=== PATIENT | male | born 1935 | race Caucasian/White ===

== ENCOUNTER → 2018-07-19 14:00 | Outpatient (CLI) | payer BC, SELFPAY ==
[2018-07-19 15:04] LABS: BUN Creatinine Ratio 27.3 (6-22); Blood Urea Nitrogen 30 mg/dL (9-20); Calcium 9.5 mg/dL (8.4-10.2); Carbon Dioxide 30 mmol/L (22-32); Chloride 99 mmol/L (98-107); Estimated Glomerular Filt Rate > 60.0 mL/min (>60); Glucose 112 mg/dL (80-110); HEMOLYSIS < 15 (0-50); Potassium 5.1 mmol/L (3.4-5.1); Sodium 141 mmol/L (137-145)
[2018-07-19 20:26] LABS: Hemoglobin A1C% w Est Avg Glu 5.9 % (4.0-6.0)
== END ==
PROVIDERS: PCP Internal Medicine; Visit Provider Internal Medicine
DX: E11.9 Type 2 diabetes mellitus without complications (principal); I10 Essential (primary) hypertension
CPT/HCPCS: 36415; 80048; 83036

== ENCOUNTER → 2018-08-02 10:18 | Outpatient (CLI) | payer BC, SELFPAY ==
[2018-08-02 11:14] LABS: BUN Creatinine Ratio 22.5 (6-22); Blood Urea Nitrogen 27 mg/dL (9-20); Calcium 9.4 mg/dL (8.4-10.2); Carbon Dioxide 31 mmol/L (22-32); Chloride 102 mmol/L (98-107); Estimated Glomerular Filt Rate 57.8 mL/min (>60); Glucose 113 mg/dL (80-110); HEMOLYSIS < 15 (0-50); Potassium 4.2 mmol/L (3.4-5.1); Sodium 143 mmol/L (137-145)
== END ==
PROVIDERS: PCP Internal Medicine; Visit Provider Internal Medicine
DX: I50.9 Heart failure, unspecified (principal)
CPT/HCPCS: 36415; 80048

== ENCOUNTER → 2018-10-30 15:09 | Outpatient (CLI) | payer BC, SELFPAY ==
[2018-10-30 16:03] LABS: Add Manual Diff / Slide Review NO; Basophils Absolute Auto 100 /uL (0-100); Basophils Percent Auto 0.6 % (0-2); Eosinophils Absolute Auto 200 /uL (0-450); Hematocrit 46.9 % (41-53); Hemoglobin 15.7 g/dL (13.5-17.5); Lymphocytes Absolute Auto 1600 /uL (1100-4500); Lymphocytes Percent Auto 18.9 % (25-40); Mean Corpuscular HGB Conc 33.5 % (30-36); Mean Corpuscular Volume 92.5 fL (80-100); Monocytes Absolute Auto 700 /uL (0-900); Monocytes Percent Auto 8.4 % (3-14); Neutrophils Absolute Auto 5800 /uL (1500-7000); Neutrophils Percent Auto 70.1 % (50-75); Platelet Count 191 X10^3/uL (150-400); Red Blood Cell Count 5.07 X10^6/uL (4.5-5.9); Red Cell Distribution Width 13.5 % (11.6-14.8); White Blood Cell Count 8.3 X10^3/uL (4.5-11.0)
[2018-10-30 16:42] LABS: B Type Natriuretic Peptide 210 (<100)
[2018-10-30 17:18] LABS: Alanine Aminotransferase 36 IU/L (21-72); Albumin 4.1 g/dL (3.5-5.0); Albumin Globulin Ratio 1.5 (1.0-2.8); Alkaline Phosphatase 80 U/L (38-126); Aspartate Aminotransferase 27 IU/L (17-59); BUN Creatinine Ratio 23.8 (6-22); Bilirubin Total 0.5 mg/dL (0.2-1.3); Blood Urea Nitrogen 31 mg/dL (9-20); Calcium 9.7 mg/dL (8.4-10.2); Carbon Dioxide 27 mmol/L (22-32); Chloride 105 mmol/L (98-107); Estimated Glomerular Filt Rate 52.6 mL/min (>60); Globulin 2.8 g/dL (1.7-4.1); Glucose 104 mg/dL (80-110); HEMOLYSIS < 15 (0-50); Sodium 141 mmol/L (137-145); Total Protein 6.9 g/dL (6.3-8.2)
[2018-10-30 17:19] LABS: Potassium 5.7 mmol/L (3.4-5.1)
== END ==
PROVIDERS: Family Provider Internal Medicine; PCP Internal Medicine; Visit Provider Internal Medicine
DX: R06.09 Other forms of dyspnea (principal)
CPT/HCPCS: 36415; 80053; 83880; 85025

== ENCOUNTER → 2018-11-10 13:48 | Outpatient (CLI) | payer BC, SELFPAY ==
--- NOTE | 2018-11-10 | DI.ECHO.S_ITS ---
[facility] +---------+ : : [address] : : : : [id number] : : : : Phone: [phone]+ Echocardiogram Report + + :Name: NIK SY Study Date: 11/10/2018 Height: 70 in : :[facility] Weight: 225 lb : : Gender: Male BSA: 2.2 m2 : :: 1935 Age: 83 yrs BP: 120/74 mmHg: :Reason For Study: Dyspnea : :Ordering Physician: : :Garfield White Performed By: Hortencia Stinson : :Referring: MAIDA PLUNKETT : + + Interpretation Summary Left ventricular ejection fraction is estimated to be 35 +/- 5%. Septal motion is consistent with conduction abnormality. Septal, mid to distal postero-lateral wall, apex and the inferior wall are hypokinetic The right ventricular systolic pressure is estimated to be at least 23 mmHg based on an estimated right atrial pressure of 3 mm Hg. The ascending aorta is mildly enlarged. There is no significant valvular heart disease. Procedure: A two-dimensional transthoracic echocardiogram with color flow and Doppler was performed. The study quality was technically adequate. Comparison is made with the echocardiogram of 05-20-14. The patient had a bundle branch block rhythm during the exam. The heart rate ranged between 57- 64 bpm during the study. Left Ventricle: The left ventricle is normal in size. Left ventricular wall thickness is at the upper limits of normal. Left ventricular ejection fraction is estimated to be 35 +/- 5%. There has been no significant change since the previous exam. Septal, mid to distal postero-lateral wall, apex and the inferior wall are hypokinetic. Septal motion is consistent with conduction abnormality. Diastolic function could not be accurately assessed due to unobtainable data. Right Ventricle: The right ventricle grossly appears normal in size with probable normal systolic function. Atria: Borderline left atrial enlargement. Right atrial size is normal. The interatrial septum is intact with no evidence for an atrial septal defect. Mitral Valve: The mitral valve is grossly normal. There is mild mitral annular calcification. There is trace mitral regurgitation. Aortic Valve: The aortic valve opens well. No aortic regurgitation is present. Tricuspid Valve: The tricuspid valve is normal in structure and function. There is a trace or physiologic amount of tricuspid regurgitation. The right ventricular systolic pressure is estimated to be at least 23 mmHg based on an estimated right atrial pressure of 3 mm Hg. Pulmonic Valve: The pulmonic valve is not well visualized. There is trace pulmonic regurgitation. Great Vessels: The aortic root is normal size. The ascending aorta is mildly enlarged. This is unchanged compared to the previous study. The IVC is of normal diameter and collapses greater than 50% with a sniff. This suggests a low right atrial pressure of 3 mm Hg. Pericardium/ Pleura There is no pericardial effusion. There is no pleural effusion. MMode/2D Measurements & Calculations LVIDd: 5.6 cm Ao root diam: 3.7 cm LVIDs: 4.4 cm Aortic Jxn: 3.2 cm FS: 22.0 % asc Aorta Diam: 4.0 cm EPSS: 1.5 cm Ao Arch Diam (Prox Trans): 2.9 cm IVSd: 1.1 cm LVPWd: 1.1 cm LV chavira. diameter/BSA (cm/m^2): 2.6 LV sys. diameter/BSA (cm/m^2): 2.0 LA dimension: 4.2 cm RA long axis: 5.5 cm LA A2 area: 23.5 cm2 RA area: 13.9 cm2 LA A4 area: 19.9 cm2 RA vol: 30.2 ml LA length (vol): 5.4 cm RA : 13.8 ml/m2 LA vol: 74.0 ml IVC diam: 1.6 cm LA vol index: 33.7 ml/m2 RVDd major: 6.2 cm RVD1 (basal): 2.8 cm RVD2 (mid): 2.8 cm Doppler Measurements & Calculations Ao V2 max: 131.1 cm/sec MV E max georgi: 47.6 cm/sec Ao V2 mean: 81.6 cm/sec MV A max georgi: 101.0 cm/sec Ao max P.9 mmHg MV E/A: 0.47 Ao mean P.2 mmHg Med Peak E' Georgi: 3.1 cm/sec Ao V2 VTI: 27.2 cm E/E' med: 15.6 Lat Peak E' Georgi: 2.6 cm/sec E/E' lat: 18.1 E/e' average: 16.9 MV dec time: 0.33 sec MV P1/2t: 100.5 msec TR max georgi: 222.3 cm/sec MV P1/2t max georgi: 47.3 cm/sec TR max P.8 mmHg MVA(P1/2t): 2.2 cm2 PA V2 max: 81.6 cm/sec PA V2 mean: 54.1 cm/sec PA mean P.3 mmHg PA Accel Time: 0.14 sec Reading Physician:06:00 PM
== END ==
PROVIDERS: Family Provider Internal Medicine; PCP Internal Medicine; Visit Provider Internal Medicine
DX: R06.00 Dyspnea, unspecified (principal); I77.89 Other specified disorders of arteries and arterioles
CPT/HCPCS: 93306

== ENCOUNTER 2018-11-29 16:21 | Emergency (ER) | payer BC, SELFPAY ==
[2018-11-29 16:25] VITALS: BP 143/98; PULSE 83; RESP 18; TEMP 36.3; O2SAT 95; BMI 29.4
--- NOTE | 2018-11-29 17:13 | DI.RAD.S_ITS ---
PROCEDURE: XR CHEST 1V INDICATIONS: Dyspnea and cough TECHNIQUE: One view of the chest was acquired. COMPARISON: None. FINDINGS: Surgical changes and devices: None. Lungs and pleura: Lungs are mildly hyperinflated, but clear. No pleural effusions or pneumothorax. Mediastinum: Mediastinal contours appear normal. Heart size is normal. Bones and chest wall: No suspicious bony lesions. Overlying soft tissues appear unremarkable. IMPRESSION: Mild hyperinflation, but otherwise clear chest. Dictated by: Kristi Edmonds M.D. on 11/29/2018 at 17:30 Approved by: Kristi Edmonds M.D. on 11/29/2018 at 17:34
--- NOTE | 2018-11-29 17:22 | ED.SOB ---
HPI - SOB/Dyspnea <POWER Rascon - Last Filed: 11/29/18 22:25> General Chief Complaint: Shortness of Breath/Dyspnea Stated Complaint: SENT BY MD - POSSIBLE FLUID IN LUNGS Time Seen by Provider: 11/29/18 16:59 Source: patient Mode of arrival: ambulatory Limitations: no limitations History of Present Illness 83-year-old male with history of CHF is a former smoker here for complaint of having shortness of breath over the past couple of days. He does state that he has had a cough during the same timeframe. He reports that he has worsening shortness of breath with activity. He is in no acute distress he is able speak full sentences. Denies any chest pain. No known fevers or chills. He is tolerating p.o. intake. He denies being around sick contacts. He called to his inside solar sales consultant's office today who told come the emergency room for further evaluation. He denies any other concerns or complaints at this timeframe. Related Data Home Medications Medication Instructions Recorded Confirmed ALBUTEROL SULFATE (Ventolin / 1 - 2 puff INH BID #0 02/20/06 Proventil) ASPIRIN (Aspirin Ec) 81 mg PO #0 02/20/06 BECLOMETH INHALER 42MCG (VANCERIL) 4 puff INH BID #0 02/20/06 DIGOXIN (Lanoxin) 0.25 mg PO #0 02/20/06 FUROSEMIDE (Lasix) 20 mg PO Q DAY #0 02/20/06 LISINOPRIL (Zestril / Prinivil) 20 mg PO #0 02/20/06 Metoprolol Succinate (Toprol Xl) 150 mg PO Q DAY #0 02/20/06 Pyridoxine (Vitamin B-6) 0 PO * DOSE/FREQUENCY #0 02/20/06 Previous Rx's Medication Instructions Recorded oseltamivir 30 mg PO BID 5 Days #10 cap 11/29/18 Allergies Allergy/AdvReac Type Severity Reaction Status Date / Time statins Allergy Uncoded 11/29/18 16:25 Review of Systems <POWER Rascon - Last Filed: 11/29/18 22:25> Constitutional Denies chills, Denies fever(s), Denies lethargy and Denies weakness Eyes Denies change in vision, Denies eye discharge, Denies irritation and Denies loss of vision ENT Ears, Nose, Mouth, and Throat: Denies change in voice, Denies neck pain, Denies sore throat and Denies throat swelling Cardiovascular Denies chest pain, Denies irregular heart rhythm, Denies lightheadedness, Denies palpitations, Reports dyspnea and Denies orthopnea Respiratory Reports dyspnea and Denies wheezing Gastrointestinal Gastrointestinal: Denies abdominal pain, Denies change in bowel habits, Denies diarrhea, Denies nausea and Denies vomiting Genitourinary Denies hematuria, Denies flank pain, Denies urinary incontinence and Denies urinary urgency Musculoskeletal Denies neck pain Integumentary/Breasts Denies pruritus, Denies erythema, Denies rash and Denies wounds Neurologic Denies confusion, Denies loss of vision and Denies weakness Psychiatric Denies anxiety, Denies confusion, Denies depression, Denies homicidal ideation and Denies suicidal ideation Endocrine Denies palpitations Allergic/Immunologic Denies urticaria, Denies throat swelling and Denies wheezing PFSH <POWER Rascon - Last Filed: 11/29/18 22:25> Social History Smoking Status: Former smoker Social History Smoking Status: Former smoker Exam <POWER Rascon - Last Filed: 11/29/18 22:25> Initial Vital Signs Initial Vital Signs: Vital Signs Temperature 97.4 F L 11/29/18 16:25 Pulse Rate 83 11/29/18 16:25 Respiratory Rate 18 11/29/18 16:25 Blood Pressure 143/98 H 11/29/18 16:25 Pulse Oximetry 95 11/29/18 16:25 Const General: cooperative and well developed Nutritional Appearance: well nourished Orientation: alert, awake, oriented x3 and not confused [facility] Mouth: oral mucosae normal and moist mucous membranes Eyes General: appearance normal, both eyes and all related structures Conjunctivae: conjunctivae normal Sclera: sclerae normal Pupils: PERRL EOM: EOM intact bilaterally Resp Effort & Inspection: normal respiratory effort, able to speak in complete sentences, no respiratory distress and no use of accessory muscles Auscultation: clear to auscultation bilaterally, no rales, no rhonchi and no wheezes Cardio Rate: regular rate Rhythm: regular rhythm Heart Sounds: no click, no gallops, no murmurs and no rubs Pulses: normal peripheral pulses Skin General: no rashes or lesions noted, No jaundice and No petechiae Neuro General: alert, oriented x3, gait normal and no focal motor deficits Speech: speech normal <Blue Brock DO - Last Filed: 11/30/18 02:00> Initial Vital Signs Initial Vital Signs: Vital Signs Temperature 97.4 F L 11/29/18 16:25 Pulse Rate 83 11/29/18 16:25 Respiratory Rate 18 11/29/18 16:25 Blood Pressure 143/98 H 11/29/18 16:25 Pulse Oximetry 95 11/29/18 16:25 Course <POWER Rascon - Last Filed: 11/29/18 22:25> Orders Ordered: ED Orders 11/29/18 17:13 XR chest 1V Stat 11/29/18 17:30 B Type Natriuretic Peptide Stat Complete Blood Count AUTO DIFF Stat Comprehensive Metabolic Panel Stat Troponin & CK Cardiac Panel Stat 11/29/18 18:30 FLU A and B [Influenza A and B by PCR Rapid] Stat Discontinued Medications Oseltamivir Phosphate (Tamiflu) 30 mg PO NOW ONE Stop: 11/29/18 21:31 Last Admin: 11/29/18 21:51 Dose: Not Given Oseltamivir Phosphate (Tamiflu) 30 mg PO NOW ONE Stop: 11/29/18 21:38 Last Admin: 11/29/18 21:50 Dose: 30 mg Vital Signs - 8 hr 11/29/18 18:18 11/29/18 20:00 11/29/18 21:36 Pulse Rate 69 84 79 Respiratory Rate 18 19 17 Blood Pressure [Left Arm] 131/81 130/74 129/72 Pulse Oximetry 92 95 95 <Blue Brock DO - Last Filed: 11/30/18 02:00> Orders Ordered: ED Orders 11/29/18 17:13 XR chest 1V Stat 11/29/18 17:30 B Type Natriuretic Peptide Stat Complete Blood Count AUTO DIFF Stat Comprehensive Metabolic Panel Stat Troponin & CK Cardiac Panel Stat 11/29/18 18:30 FLU A and B [Influenza A and B by PCR Rapid] Stat Discontinued Medications Oseltamivir Phosphate (Tamiflu) 30 mg PO NOW ONE Stop: 11/29/18 21:31 Last Admin: 11/29/18 21:51 Dose: Not Given Oseltamivir Phosphate (Tamiflu) 30 mg PO NOW ONE Stop: 11/29/18 21:38 Last Admin: 11/29/18 21:50 Dose: 30 mg Vital Signs - 8 hr 11/29/18 18:18 11/29/18 20:00 11/29/18 21:36 Pulse Rate 69 84 79 Respiratory Rate 18 19 17 Blood Pressure [Left Arm] 131/81 130/74 129/72 Pulse Oximetry 92 95 95 MDM - SOB/Dyspnea <POWER Rascon - Last Filed: 11/29/18 22:25> Lab Data Result diagrams: 11/29/18 17:30 11/29/18 17:30 Lab Results 11/29/18 11/29/18 11/29/18 Range/Units 15:40 17:30 17:30 WBC 4.4 L (4.5-11.0) X10^3/uL RBC 4.78 (4.5-5.9) X10^6/uL Hgb 14.8 (13.5-17.5) g/dL Hct 43.9 (41-53) % MCV 91.9 (80-100) fL MCH 31.0 (26-34) PG MCHC 33.7 (30-36) % RDW 13.4 (11.6-14.8) % Plt Count 137 L (150-400) X10^3/uL Neut % (Auto) 63.1 (50-75) % Lymph % (Auto) 20.2 L (25-40) % Monona % (Auto) 15.0 H (3-14) % Eos % (Auto) 0.7 L (2-4) % Baso % (Auto) 1.0 (0-2) % Neut # (Auto) 2800 (2974-3467) /uL Lymph # (Auto) 900 L (5536-8824) /uL Monona # (Auto) 700 (0-900) /uL Eos # (Auto) 0 (0-450) /uL Baso # (Auto) 0 (0-100) /uL Sodium 132 L (137-145) mmol/L Potassium 3.4 (3.4-5.1) mmol/L Chloride 94 L (98-107) mmol/L Carbon Dioxide 27 (22-32) mmol/L BUN 55 H (9-20) mg/dL Creatinine 1.50 H (0.66-1.25) mg/dL Estimated GFR 44.6 L (>60) mL/min BUN/Creatinine Ratio 36.7 H (6-22) Glucose 216 H (80-110) mg/dL Calcium 8.4 (8.4-10.2) mg/dL Total Bilirubin 0.6 (0.2-1.3) mg/dL AST 54 (17-59) IU/L ALT 42 (21-72) IU/L Alkaline Phosphatase 56 (38-126) U/L Total Creatine Kinase 291 H (55-170) U/L CK-MB (CK-2) 3.42 H (<2.37) ng/mL CK-MB (CK-2) Rel Index 1.2 L (1.5-5.0) % Troponin I 0.059 H 0.043 H (0.01-0.034) ng/mL B-Natriuretic Peptide 375 H (<100) Total Protein 6.7 (6.3-8.2) g/dL Albumin 3.6 (3.5-5.0) g/dL Globulin 3.1 (1.7-4.1) g/dL Albumin/Globulin Ratio 1.2 (1.0-2.8) Influenza A & B (PCR) (Negative) 11/29/18 Range/Units 18:30 WBC (4.5-11.0) X10^3/uL RBC (4.5-5.9) X10^6/uL Hgb (13.5-17.5) g/dL Hct (41-53) % MCV (80-100) fL MCH (26-34) PG MCHC (30-36) % RDW (11.6-14.8) % Plt Count (150-400) X10^3/uL Neut % (Auto) (50-75) % Lymph % (Auto) (25-40) % Monona % (Auto) (3-14) % Eos % (Auto) (2-4) % Baso % (Auto) (0-2) % Neut # (Auto) (8119-1226) /uL Lymph # (Auto) (9864-9339) /uL Monona # (Auto) (0-900) /uL Eos # (Auto) (0-450) /uL Baso # (Auto) (0-100) /uL Sodium (137-145) mmol/L Potassium (3.4-5.1) mmol/L Chloride (98-107) mmol/L Carbon Dioxide (22-32) mmol/L BUN (9-20) mg/dL Creatinine (0.66-1.25) mg/dL Estimated GFR (>60) mL/min BUN/Creatinine Ratio (6-22) Glucose (80-110) mg/dL Calcium (8.4-10.2) mg/dL Total Bilirubin (0.2-1.3) mg/dL AST (17-59) IU/L ALT (21-72) IU/L Alkaline Phosphatase (38-126) U/L Total Creatine Kinase (55-170) U/L CK-MB (CK-2) (<2.37) ng/mL CK-MB (CK-2) Rel Index (1.5-5.0) % Troponin I (0.01-0.034) ng/mL B-Natriuretic Peptide (<100) Total Protein (6.3-8.2) g/dL Albumin (3.5-5.0) g/dL Globulin (1.7-4.1) g/dL Albumin/Globulin Ratio (1.0-2.8) Influenza A & B (PCR) Positive, type a A (Negative) Imaging Data Chest x-ray: Radiologist's impression: [place] [address] XRay Report Signed Patient: Morteza Marquez [facility]#: [id number] : 5Acct:[id number] Age/Sex: 83 / MDate of Service: 11/29/18 Loc: ED Accession Number: [id number] Procedure: XR chest 1V Ordering Provider: Abdirashid York PROCEDURE: XR CHEST 1V INDICATIONS: Dyspnea and cough TECHNIQUE: One view of the chest was acquired. COMPARISON: None. FINDINGS: Surgical changes and devices: None. Lungs and pleura: Lungs are mildly hyperinflated, but clear. No pleural effusions or pneumothorax. Mediastinum: Mediastinal contours appear normal. Heart size is normal. Bones and chest wall: No suspicious bony lesions. Overlying soft tissues appear unremarkable. IMPRESSION: Mild hyperinflation, but otherwise clear chest. Dictated by: Kristi Edmonds M.D. on 11/29/2018 at 17:30 Approved by: Kristi Edmonds M.D. on 11/29/2018 at 17:34 ECG Data Interpretation: EKG shows sinus rhythm no ST elevation or depression. There is a left bundle branch block. Ventricular rate of 76. Pr interval of 190. QRS of 177. QTC of 487 MDM Narrative Medical decision making narrative: EKG shows sinus rhythm no ST elevation or depression. No ectopy. Chest x-ray was obtained and was negative for any acute findings.CBC was obtained and was unremarkable. Chemistry panel was obtained and it shows troponin is intermediate at 0.043. Repeat troponin was obtained 2 hr later and was 0.059. BNP was elevated at 375. Chemistry also shows a decreased GFR of 44.6 tonight. Last GFR was in October which was 52.6. His creatinine is 1.5 tonight. discussed case with his inside solar sales consultant Dr. Porras who does not believe that he is having any cardiac ischmia. We both believe that his shortness of breath is due to influenza at this timeframe. He is prescribed Tamiflu. He is instructed to take his current medications including his diuretics as prescribed. Plenty of fluids. Follow up with primary care provider the next few days for re-evaluation. For any worsening symptoms return to the emergency room. <Blue Brock DO - Last Filed: 11/30/18 02:00> Lab Data Lab Results 11/29/18 11/29/18 11/29/18 Range/Units 15:40 17:30 17:30 WBC 4.4 L (4.5-11.0) X10^3/uL RBC 4.78 (4.5-5.9) X10^6/uL Hgb 14.8 (13.5-17.5) g/dL Hct 43.9 (41-53) % MCV 91.9 (80-100) fL MCH 31.0 (26-34) PG MCHC 33.7 (30-36) % RDW 13.4 (11.6-14.8) % Plt Count 137 L (150-400) X10^3/uL Neut % (Auto) 63.1 (50-75) % Lymph % (Auto) 20.2 L (25-40) % Monona % (Auto) 15.0 H (3-14) % Eos % (Auto) 0.7 L (2-4) % Baso % (Auto) 1.0 (0-2) % Neut # (Auto) 2800 (6767-6305) /uL Lymph # (Auto) 900 L (9990-3938) /uL Monona # (Auto) 700 (0-900) /uL Eos # (Auto) 0 (0-450) /uL Baso # (Auto) 0 (0-100) /uL Sodium 132 L (137-145) mmol/L Potassium 3.4 (3.4-5.1) mmol/L Chloride 94 L (98-107) mmol/L Carbon Dioxide 27 (22-32) mmol/L BUN 55 H (9-20) mg/dL Creatinine 1.50 H (0.66-1.25) mg/dL Estimated GFR 44.6 L (>60) mL/min BUN/Creatinine Ratio 36.7 H (6-22) Glucose 216 H (80-110) mg/dL Calcium 8.4 (8.4-10.2) mg/dL Total Bilirubin 0.6 (0.2-1.3) mg/dL AST 54 (17-59) IU/L ALT 42 (21-72) IU/L Alkaline Phosphatase 56 (38-126) U/L Total Creatine Kinase 291 H (55-170) U/L CK-MB (CK-2) 3.42 H (<2.37) ng/mL CK-MB (CK-2) Rel Index 1.2 L (1.5-5.0) % Troponin I 0.059 H 0.043 H (0.01-0.034) ng/mL B-Natriuretic Peptide 375 H (<100) Total Protein 6.7 (6.3-8.2) g/dL Albumin 3.6 (3.5-5.0) g/dL Globulin 3.1 (1.7-4.1) g/dL Albumin/Globulin Ratio 1.2 (1.0-2.8) Influenza A & B (PCR) (Negative) 11/29/18 Range/Units 18:30 WBC (4.5-11.0) X10^3/uL RBC (4.5-5.9) X10^6/uL Hgb (13.5-17.5) g/dL Hct (41-53) % MCV (80-100) fL MCH (26-34) PG MCHC (30-36) % RDW (11.6-14.8) % Plt Count (150-400) X10^3/uL Neut % (Auto) (50-75) % Lymph % (Auto) (25-40) % Monona % (Auto) (3-14) % Eos % (Auto) (2-4) % Baso % (Auto) (0-2) % Neut # (Auto) (1005-1740) /uL Lymph # (Auto) (7264-7074) /uL Monona # (Auto) (0-900) /uL Eos # (Auto) (0-450) /uL Baso # (Auto) (0-100) /uL Sodium (137-145) mmol/L Potassium (3.4-5.1) mmol/L Chloride (98-107) mmol/L Carbon Dioxide (22-32) mmol/L BUN (9-20) mg/dL Creatinine (0.66-1.25) mg/dL Estimated GFR (>60) mL/min BUN/Creatinine Ratio (6-22) Glucose (80-110) mg/dL Calcium (8.4-10.2) mg/dL Total Bilirubin (0.2-1.3) mg/dL AST (17-59) IU/L ALT (21-72) IU/L Alkaline Phosphatase (38-126) U/L Total Creatine Kinase (55-170) U/L CK-MB (CK-2) (<2.37) ng/mL CK-MB (CK-2) Rel Index (1.5-5.0) % Troponin I (0.01-0.034) ng/mL B-Natriuretic Peptide (<100) Total Protein (6.3-8.2) g/dL Albumin (3.5-5.0) g/dL Globulin (1.7-4.1) g/dL Albumin/Globulin Ratio (1.0-2.8) Influenza A & B (PCR) Positive, type a A (Negative) Discharge Plan Departure Patient Disposition: Home Clinical Impression: Influenza A Discharge Date/Time: 03/27/19 21:57 Interventions: ED Discharge Assessment Last Done: 11/29/18 21:57 Activity Restrictions/Additional Instructions: Influenza swab was obtained and positive for influenza A. Believe this is where your shortness of breath is coming from. Plenty of fluids and rest. Tamiflu is prescribed to help with influenza symptoms use as directed. Use [id number] Tylenol as needed for any discomfort. Follow up with her primary care provider in the next few days for re-evaluation. For any worsening symptoms return to the emergency room. Prescriptions: New oseltamivir 30 mg capsule 30 mg PO BID 5 Days Qty: 10 RF: 0 No Action LISINOPRIL (Zestril / Prinivil) 20 mg PO Qty: 0 RF: 0 Metoprolol Succinate (Toprol Xl) 150 mg PO Q DAY Qty: 0 RF: 0 DIGOXIN (Lanoxin) 0.25 mg PO Qty: 0 RF: 0 FUROSEMIDE (Lasix) 20 mg PO Q DAY Qty: 0 RF: 0 ASPIRIN (Aspirin Ec) 81 mg PO Qty: 0 RF: 0 Pyridoxine (Vitamin B-6) PO * [place] DOSE/FREQUENCY Qty: 0 RF: 0 ALBUTEROL SULFATE (Ventolin / Proventil) 1 - 2 puff INH BID Qty: 0 RF: 0 BECLOMETH INHALER 42MCG (VANCERIL) 4 puff INH BID Qty: 0 RF: 0 Referrals: Garfield White MD [Primary Care Provider] - <Blue Brock DO - Last Filed: 11/30/18 02:00> Cosign ED Attending Bobbiature Attestation: I was available for consultation during this patient's emergency department encounter
[2018-11-29 17:39] LABS: Add Manual Diff / Slide Review NO; Basophils Absolute Auto 0 /uL (0-100); Eosinophils Absolute Auto 0 /uL (0-450); Eosinophils Percent Auto 0.7 % (2-4); Hematocrit 43.9 % (41-53); Hemoglobin 14.8 g/dL (13.5-17.5); Lymphocytes Absolute Auto 900 /uL (1100-4500); Lymphocytes Percent Auto 20.2 % (25-40); Mean Corpuscular HGB Conc 33.7 % (30-36); Mean Corpuscular Volume 91.9 fL (80-100); Monocytes Absolute Auto 700 /uL (0-900); Neutrophils Absolute Auto 2800 /uL (1500-7000); Neutrophils Percent Auto 63.1 % (50-75); Platelet Count 137 X10^3/uL (150-400); Red Blood Cell Count 4.78 X10^6/uL (4.5-5.9); Red Cell Distribution Width 13.4 % (11.6-14.8); White Blood Cell Count 4.4 X10^3/uL (4.5-11.0)
[2018-11-29 17:57] LABS: Alanine Aminotransferase 42 IU/L (21-72); Albumin 3.6 g/dL (3.5-5.0); Albumin Globulin Ratio 1.2 (1.0-2.8); Alkaline Phosphatase 56 U/L (38-126); Aspartate Aminotransferase 54 IU/L (17-59); BUN Creatinine Ratio 36.7 (6-22); Bilirubin Total 0.6 mg/dL (0.2-1.3); Blood Urea Nitrogen 55 mg/dL (9-20); Calcium 8.4 mg/dL (8.4-10.2); Carbon Dioxide 27 mmol/L (22-32); Chloride 94 mmol/L (98-107); Creatine Kinase 291 U/L (55-170); Estimated Glomerular Filt Rate 44.6 mL/min (>60); Globulin 3.1 g/dL (1.7-4.1); Glucose 216 mg/dL (80-110); HEMOLYSIS 27 (0-50); Potassium 3.4 mmol/L (3.4-5.1); Sodium 132 mmol/L (137-145); Total Protein 6.7 g/dL (6.3-8.2)
[2018-11-29 18:07] LABS: Troponin I 0.043 ng/mL (0.01-0.034)
[2018-11-29 18:12] LABS: CKMB % Relative Index 1.2 % (1.5-5.0); Creatine Kinase MB 3.42 ng/mL (<2.37)
[2018-11-29 18:18] VITALS: BP 131/81; PULSE 69; RESP 18; O2SAT 92
[2018-11-29 18:26] LABS: B Type Natriuretic Peptide 375 (<100)
[2018-11-29 20:00] VITALS: BP 130/74; PULSE 84; RESP 19; O2SAT 95
[2018-11-29 20:15] LABS: Troponin I 0.059 ng/mL (0.01-0.034)
[2018-11-29 21:36] VITALS: BP 129/72; PULSE 79; RESP 17; O2SAT 95
[2018-11-29] MEDS: OSELTAMIVIR SUSP 6 MG/ML BOTTLE 30 MG PO (21:50)
== END 2018-11-29 21:57 | disposition home or self-care (01) ==
PROVIDERS: Emergency Provider Nurse Practitioner Family; Family Provider Internal Medicine; PCP Internal Medicine
DX: J10.1 Influenza due to other identified influenza virus with other respiratory manifestations (principal)
CPT/HCPCS: 36415; 36591; 71045; 80053; 82550; 82553; 83880; 84484; 85025; 87400; 93005; 99284; 99285

== ENCOUNTER → 2019-01-03 13:30 | Outpatient (CLI) | payer BC, SELFPAY ==
[2019-01-03 15:00] LABS: BUN Creatinine Ratio 23.3 (6-22); Blood Urea Nitrogen 42 mg/dL (9-20); Calcium 9.3 mg/dL (8.4-10.2); Carbon Dioxide 30 mmol/L (22-32); Chloride 95 mmol/L (98-107); Estimated Glomerular Filt Rate 36.1 mL/min (>60); Glucose 194 mg/dL (80-110); HEMOLYSIS < 15 (0-50); Potassium 4.6 mmol/L (3.4-5.1); Sodium 137 mmol/L (137-145)
== END ==
PROVIDERS: PCP Internal Medicine; Visit Provider Physician Assistant
DX: I25.5 Ischemic cardiomyopathy (principal); I42.0 Dilated cardiomyopathy
CPT/HCPCS: 36415; 80048

== ENCOUNTER → 2019-01-15 08:27 | Outpatient (CLI) | payer BC, SELFPAY ==
[2019-01-15 10:05] LABS: BUN Creatinine Ratio 27.7 (6-22); Blood Urea Nitrogen 36 mg/dL (9-20); Calcium 9.4 mg/dL (8.4-10.2); Carbon Dioxide 29 mmol/L (22-32); Chloride 99 mmol/L (98-107); Estimated Glomerular Filt Rate 52.6 mL/min (>60); Glucose 127 mg/dL (80-110); Sodium 139 mmol/L (137-145)
[2019-01-15 10:16] LABS: HEMOLYSIS 62 (0-50)
== END ==
PROVIDERS: PCP Internal Medicine; Visit Provider Physician Assistant
DX: I42.8 Other cardiomyopathies (principal); N28.9 Disorder of kidney and ureter, unspecified
CPT/HCPCS: 36415; 80048

== ENCOUNTER → 2019-02-08 15:37 | Outpatient (CLI) | payer BC, SELFPAY ==
[2019-02-08 17:18] LABS: BUN Creatinine Ratio 24.3 (6-22); Blood Urea Nitrogen 34 mg/dL (9-20); Calcium 9.7 mg/dL (8.4-10.2); Carbon Dioxide 30 mmol/L (22-32); Chloride 102 mmol/L (98-107); Estimated Glomerular Filt Rate 48.3 mL/min (>60); Glucose 110 mg/dL (80-110); HEMOLYSIS < 15 (0-50); Sodium 141 mmol/L (137-145)
== END ==
PROVIDERS: PCP Internal Medicine; Visit Provider Physician Assistant
DX: I50.22 Chronic systolic (congestive) heart failure (principal); N28.9 Disorder of kidney and ureter, unspecified
CPT/HCPCS: 36415; 80048

== ENCOUNTER → 2019-03-01 14:19 | Outpatient (CLI) | payer BC, SELFPAY ==
[2019-03-01 15:27] LABS: BUN Creatinine Ratio 30.6 (6-22); Blood Urea Nitrogen 52 mg/dL (9-20); Calcium 9.6 mg/dL (8.4-10.2); Carbon Dioxide 32 mmol/L (22-32); Chloride 101 mmol/L (98-107); Estimated Glomerular Filt Rate 38.6 mL/min (>60); Glucose 104 mg/dL (80-110); HEMOLYSIS < 15 (0-50); Potassium 5.3 mmol/L (3.4-5.1); Sodium 141 mmol/L (137-145)
== END ==
PROVIDERS: PCP Internal Medicine; Visit Provider Physician Assistant
DX: I50.22 Chronic systolic (congestive) heart failure (principal); N28.9 Disorder of kidney and ureter, unspecified
CPT/HCPCS: 36415; 80048

== ENCOUNTER → 2019-03-09 13:51 | Outpatient (CLI) | payer BC, SELFPAY ==
[2019-03-09 15:03] LABS: Alanine Aminotransferase 19 IU/L (21-72); Albumin 4.1 g/dL (3.5-5.0); Albumin Globulin Ratio 1.5 (1.0-2.8); Alkaline Phosphatase 87 U/L (38-126); Aspartate Aminotransferase 24 IU/L (17-59); BUN Creatinine Ratio 24.7 (6-22); Bilirubin Total 0.5 mg/dL (0.2-1.3); Blood Urea Nitrogen 42 mg/dL (9-20); Calcium 9.5 mg/dL (8.4-10.2); Carbon Dioxide 32 mmol/L (22-32); Chloride 98 mmol/L (98-107); Estimated Glomerular Filt Rate 38.6 mL/min (>60); Globulin 2.8 g/dL (1.7-4.1); Glucose 157 mg/dL (80-110); HEMOLYSIS < 15 (0-50); Potassium 4.9 mmol/L (3.4-5.1); Sodium 140 mmol/L (137-145); Total Protein 6.9 g/dL (6.3-8.2)
[2019-03-09 15:28] LABS: Thyroid Stimulating Hormone 1.73 uIU/mL (0.47-4.68)
== END ==
PROVIDERS: PCP Internal Medicine; Visit Provider Internal Medicine Cardiovascular Disease
DX: I48.0 Paroxysmal atrial fibrillation (principal)
CPT/HCPCS: 36415; 80053; 84443

== ENCOUNTER → 2019-03-20 14:41 | Outpatient (CLI) | payer BC, SELFPAY ==
[2019-03-20 16:37] LABS: Blood Urea Nitrogen 40 mg/dL (9-20); Calcium 9.5 mg/dL (8.4-10.2); Carbon Dioxide 31 mmol/L (22-32); Chloride 101 mmol/L (98-107); Estimated Glomerular Filt Rate 41.4 mL/min (>60); Glucose 113 mg/dL (80-110); HEMOLYSIS 66 (0-50); Sodium 140 mmol/L (137-145)
[2019-03-20 16:38] LABS: Potassium 5.2 mmol/L (3.4-5.1)
== END ==
PROVIDERS: PCP Internal Medicine; Visit Provider Physician Assistant
DX: N28.9 Disorder of kidney and ureter, unspecified (principal)
CPT/HCPCS: 36415; 80048

== ENCOUNTER → 2019-03-23 10:37 | Outpatient (CLI) | payer BC, SELFPAY ==
[2019-03-23 17:17] LABS: Blood Urea Nitrogen 40 mg/dL (9-20); Calcium 9.8 mg/dL (8.4-10.2); Carbon Dioxide 32 mmol/L (22-32); Chloride 100 mmol/L (98-107); Estimated Glomerular Filt Rate 41.4 mL/min (>60); Glucose 74 mg/dL (80-110); HEMOLYSIS < 15 (0-50); Potassium 5.2 mmol/L (3.4-5.1); Sodium 139 mmol/L (137-145)
== END ==
PROVIDERS: Visit Provider Physician Assistant
DX: N28.9 Disorder of kidney and ureter, unspecified (principal)
CPT/HCPCS: 36415; 80048

== ENCOUNTER → 2019-03-29 15:35 | Outpatient (CLI) | payer BC, SELFPAY ==
[2019-03-29 16:56] LABS: BUN Creatinine Ratio 26.1 (6-22); Blood Urea Nitrogen 47 mg/dL (9-20); Calcium 9.8 mg/dL (8.4-10.2); Carbon Dioxide 31 mmol/L (22-32); Chloride 97 mmol/L (98-107); Estimated Glomerular Filt Rate 36.1 mL/min (>60); Glucose 88 mg/dL (80-110); HEMOLYSIS < 15 (0-50); Potassium 5.1 mmol/L (3.4-5.1); Sodium 140 mmol/L (137-145)
== END ==
PROVIDERS: PCP Internal Medicine; Visit Provider Physician Assistant
DX: N28.9 Disorder of kidney and ureter, unspecified (principal); I50.22 Chronic systolic (congestive) heart failure
CPT/HCPCS: 36415; 80048

== ENCOUNTER → 2019-04-05 08:50 | Outpatient (CLI) | payer BC, SELFPAY ==
[2019-04-05 09:33] LABS: BUN Creatinine Ratio 19.4 (6-22); Blood Urea Nitrogen 33 mg/dL (9-20); Calcium 9.7 mg/dL (8.4-10.2); Carbon Dioxide 30 mmol/L (22-32); Chloride 106 mmol/L (98-107); Estimated Glomerular Filt Rate 38.6 mL/min (>60); Glucose 101 mg/dL (80-110); HEMOLYSIS < 15 (0-50); Sodium 143 mmol/L (137-145)
[2019-04-05 09:34] LABS: Potassium 5.4 mmol/L (3.4-5.1)
== END ==
PROVIDERS: PCP Internal Medicine; Visit Provider Physician Assistant
DX: N28.9 Disorder of kidney and ureter, unspecified (principal)
CPT/HCPCS: 36415; 80048

== ENCOUNTER → 2019-04-11 11:01 | Outpatient (CLI) | payer BC, SELFPAY ==
[2019-04-11 12:06] LABS: BUN Creatinine Ratio 21.7 (6-22); Blood Urea Nitrogen 39 mg/dL (9-20); Calcium 9.5 mg/dL (8.4-10.2); Carbon Dioxide 33 mmol/L (22-32); Chloride 102 mmol/L (98-107); Estimated Glomerular Filt Rate 36.1 mL/min (>60); Glucose 111 mg/dL (80-110); HEMOLYSIS < 15 (0-50); Sodium 140 mmol/L (137-145)
== END ==
PROVIDERS: PCP Internal Medicine; Visit Provider Hospitalist
DX: N28.9 Disorder of kidney and ureter, unspecified (principal); E87.5 Hyperkalemia
CPT/HCPCS: 36415; 80048

== ENCOUNTER → 2019-07-03 14:36 | Outpatient (CLI) | payer BC, SELFPAY ==
[2019-07-03 17:34] LABS: BUN Creatinine Ratio 26.3 (6-22); Blood Urea Nitrogen 42 mg/dL (9-20); Calcium 9.9 mg/dL (8.4-10.2); Carbon Dioxide 29 mmol/L (22-32); Chloride 100 mmol/L (98-107); Estimated Glomerular Filt Rate 41.4 mL/min (>60); Glucose 129 mg/dL (80-110); HEMOLYSIS < 15 (0-50); Potassium 4.4 mmol/L (3.4-5.1); Sodium 141 mmol/L (137-145)
== END ==
PROVIDERS: Visit Provider Hospitalist
DX: I42.8 Other cardiomyopathies (principal)
CPT/HCPCS: 36415; 80048

== ENCOUNTER → 2019-07-30 10:06 | Outpatient (CLI) | payer BC, SELFPAY ==
[2019-07-30 10:58] LABS: BUN Creatinine Ratio 21.8 (6-22); Blood Urea Nitrogen 37 mg/dL (9-20); Calcium 9.6 mg/dL (8.4-10.2); Carbon Dioxide 34 mmol/L (22-32); Chloride 98 mmol/L (98-107); Estimated Glomerular Filt Rate 38.6 mL/min (>60); Glucose 169 mg/dL (80-110); HEMOLYSIS < 15 (0-50); Potassium 4.3 mmol/L (3.4-5.1); Sodium 142 mmol/L (137-145)
== END ==
PROVIDERS: Family Provider Family Medicine; PCP Family Medicine; Visit Provider Hospitalist
DX: N28.9 Disorder of kidney and ureter, unspecified (principal); E87.5 Hyperkalemia
CPT/HCPCS: 36415; 80048

== ENCOUNTER 2020-04-28 08:52 | Emergency (ER) | payer BC, SELFPAY ==
[2020-04-28 09:18] VITALS: BP 107/62; PULSE 67; RESP 18; TEMP 36.7; O2SAT 97; BMI 28.8
[2020-04-28 09:26] VITALS: PULSE 70
[2020-04-28 09:47] VITALS: PULSE 69; O2SAT 95
--- NOTE | 2020-04-28 09:47 | ED_ITS ---
HPI - Extremity Problem General Chief complaint: Extremity Problem,Nontraumatic Stated complaint: something wrong w left foot toe Time Seen by Provider: 04/28/20 09:47 Source: patient Mode of arrival: Wheelchair Limitations: no limitations History of Present Illness HPI Narrative: 84-year-old gentleman with history of heart failure on digoxin, COPD, congestive heart failure and pacemaker who over the last 2 days has been having increasing right foot pain over the 1st metatarsal. He notes he was outside working in the [employer] and felt an acute pain without any obvious trauma. Has been intermittently worse for the past 48 hours. He has no history of prior gout Related Data Home Medications Medication Instructions Recorded Confirmed ALBUTEROL SULFATE (Ventolin / 1 - 2 puff INH BID #0 02/20/06 Proventil) ASPIRIN (Aspirin Ec) 81 mg PO #0 02/20/06 BECLOMETH INHALER 42MCG (VANCERIL) 4 puff INH BID #0 02/20/06 DIGOXIN (Lanoxin) 0.25 mg PO #0 02/20/06 FUROSEMIDE (Lasix) 20 mg PO Q DAY #0 02/20/06 LISINOPRIL (Zestril / Prinivil) 20 mg PO #0 02/20/06 Metoprolol Succinate (Toprol Xl) 150 mg PO Q DAY #0 02/20/06 Pyridoxine (Vitamin B-6) 0 PO * DOSE/FREQUENCY #0 02/20/06 Previous Rx's Medication Instructions Recorded prednisone 10 mg PO DAILY #21 tab 04/28/20 Allergies Allergy/AdvReac Type Severity Reaction Status Date / Time statins Allergy Uncoded 11/29/18 16:25 Review of Systems Review of Systems Narrative: Pertinent positive and negative findings as per HPI Remainder of review of systems is otherwise unremarkable for Constitutional: Fevers, chills, weakness ENT: No sore throat, neck pain, ear pain CV: Chest pain, palpitations, dyspnea on exertion GI: Nausea, vomiting, diarrhea, change in bowel habits, black or bloody stools : Dysuria, hematuria, flank pain MS: Muscle weakness, numbness, joint swelling or warmth Skin: Rashes, nonhealing lesions Patient History Medical History Congestive heart failure (Acute) COPD (chronic obstructive pulmonary disease) (Acute) Renal insufficiency (Acute) Surgical History History of permanent cardiac pacemaker placement (Inactive) Social History Smoking Status: Former smoker Smoking Status: Former smoker alcohol intake frequency: holidays/special occasions only Substance Use Type: does not use Exam Narrative Exam Narrative: General: Alert appropriate in no acute distress Respiratory: Able to speak in full sentences, no obvious respiratory distress Skin: No obvious rashes, warm and dry Neurologic: Grossly intact no obvious asymmetries or abnormalities Psych, appropriate insight and affect, cooperative Extremity: Right 1st metatarsal joint exquisitely tender, red with mild swelling over the dorsum of the foot but not particularly warm to the touch no evidence of trauma deformity or skin breakdown. Significant onychomycosis Initial Vital Signs Initial Vital Signs: Vital Signs Temperature 98.1 F 04/28/20 09:18 Pulse Rate 67 04/28/20 09:18 Respiratory Rate 18 04/28/20 09:18 Blood Pressure 107/62 04/28/20 09:18 Pulse Oximetry 97 04/28/20 09:18 Course Orders Ordered: ED Orders 04/28/20 10:29 Complete Blood Count AUTO DIFF Stat Comprehensive Metabolic Panel Stat Uric Acid Stat Discontinued Medications Prednisone (Deltasone) 40 mg PO NOW ONE Stop: 04/28/20 10:20 Last Admin: 04/28/20 10:53 Dose: Not Given Documented by: EVARISTO Prednisone (Deltasone) 40 mg PO NOW ONE Stop: 04/28/20 10:52 Last Admin: 04/28/20 10:52 Dose: 40 mg Documented by: EVARISTO Vital Signs Vital signs: Vital Signs - 8 hr 04/28/20 11:21 Pulse Rate 68 Blood Pressure 114/68 Pulse Oximetry 96 MDM - Extremity (Nontraumatic) Medical Records Attestation: I reviewed the patient's medical records. Lab Data Attestation: I reviewed the patient's lab results. Result diagrams: 04/28/20 10:29 04/28/20 10:29 Labs: Lab Results 04/28/20 04/28/20 Range/Units 10:29 10:29 WBC 8.7 (4.5-11.0) X10^3/uL RBC 4.53 (4.5-5.9) X10^6/uL Hgb 14.3 (13.5-17.5) g/dL Hct 42.2 (41-53) % MCV 93.2 (80-100) fL MCH 31.7 (26-34) PG MCHC 34.0 (30-36) % RDW 13.0 (11.6-14.8) % Plt Count 178 (150-400) X10^3/uL Neut % (Auto) 75.6 H (50-75) % Lymph % (Auto) 13.2 L (25-40) % [place] % (Auto) 9.2 (3-14) % Eos % (Auto) 1.5 L (2-4) % Baso % (Auto) 0.5 (0-2) % Neut # (Auto) 6600 (0525-5117) /uL Lymph # (Auto) 1100 (5427-1635) /uL [place] # (Auto) 800 (0-900) /uL Eos # (Auto) 100 (0-450) /uL Baso # (Auto) 0 (0-100) /uL Sodium 136 L (137-145) mmol/L Potassium 4.4 (3.4-5.1) mmol/L Chloride 102 (98-107) mmol/L Carbon Dioxide 29 (22-32) mmol/L BUN 31 H (9-20) mg/dL Creatinine 1.37 H (0.66-1.25) mg/dL Estimated GFR 49.4 L (>60) mL/min BUN/Creatinine Ratio 22.6 H (6-22) Glucose 145 H (80-110) mg/dL Uric Acid 8.1 (3.5-8.5) mg/dL Calcium 9.1 (8.4-10.2) mg/dL Total Bilirubin 0.9 (0.2-1.3) mg/dL AST 22 (17-59) IU/L ALT 14 (<50) IU/L Alkaline Phosphatase 107 (38-126) U/L Total Protein 7.2 (6.3-8.2) g/dL Albumin 4.0 (3.5-5.0) g/dL Globulin 3.2 (1.7-4.1) g/dL Albumin/Globulin Ratio 1.3 (1.0-2.8) MDM Narrative Medical decision making narrative: 84-year-old gentleman with 48 hours of increasing redness and exquisite pain to the right 1st metatarsal joint. Elevated uric acid although still within the normal range. Mild renal insufficiency. Slightly better after 40 mg of prednisone. No evidence of infection at this time no evidence of trauma. Working diagnosis at this point is a gout flare. Because of his renal insufficiency nonsteroidals and co lchicine are not indicated. Will place him on prednisone taper over the next 7 days and is to follow-up with his primary care physician at the end of the 7 days to make sure that he is clearly improving safe for home discharge Discharge Plan Departure Patient Disposition: Home Clinical Impression: Renal insufficiency Gout Qualifiers: Gout site: foot Gout etiology: unspecified cause Chronicity: acute Laterality: left Qualified Code(s): M10.9 - Gout, unspecified Discharge Date/Time: 04/28/20 11:40 Instructions: DI for Gout Activity Restrictions/Additional Instructions: Thank you for coming in today I suspect that the pain that you are experiencing in your foot is due to gout. Your kidney function will not allow was to use the first-line treatment for gout so I am going to put you on a steroid taper the next couple of days to help control the pain. At this time, it does not look like an infection or an obvious trauma or somethi ng broken. Please take 40 mg 04/29,26 30 mg 05/01,28 20 mg 05/03,30 10mg 05/05,05/06 and 5mg 05/07,3 then stop Please follow-up with Dr. Harp in about a week to make sure that you are clearly improving. I hope you feel better Prescriptions: New prednisone 10 mg tablet 10 mg PO DAILY Qty: 21 RF: 0 No Action LISINOPRIL (Zestril / Prinivil) 20 mg PO Qty: 0 RF: 0 Metoprolol Succinate (Toprol Xl) 150 mg PO Q DAY Qty: 0 RF: 0 DIGOXIN (Lanoxin) 0.25 mg PO Qty: 0 RF: 0 FUROSEMIDE (Lasix) 20 mg PO Q DAY Qty: 0 RF: 0 ASPIRIN (Aspirin Ec) 81 mg PO Qty: 0 RF: 0 Pyridoxine (Vitamin B-6) 0 PO * UK DOSE/FREQUENCY Qty: 0 RF: 0 ALBUTEROL SULFATE (Ventolin / Proventil) 1 - 2 puff INH BID Qty: 0 RF: 0 BECLOMETH INHALER 42MCG (VANCERIL) 4 puff INH BID Qty: 0 RF: 0 Referrals: Valeria Harp DO [Primary Care Provider] -
[2020-04-28 10:00] VITALS: PULSE 73; O2SAT 95
--- NOTE | 2020-04-28 10:01 | PC.NURSE ---
at bedside for eval
[2020-04-28 10:36] LABS: Add Manual Diff / Slide Review NO; Basophils Absolute Auto 0 /uL (0-100); Basophils Percent Auto 0.5 % (0-2); Eosinophils Absolute Auto 100 /uL (0-450); Eosinophils Percent Auto 1.5 % (2-4); Hematocrit 42.2 % (41-53); Hemoglobin 14.3 g/dL (13.5-17.5); Lymphocytes Absolute Auto 1100 /uL (1100-4500); Lymphocytes Percent Auto 13.2 % (25-40); Mean Corpuscular Hemoglobin 31.7 PG (26-34); Mean Corpuscular Volume 93.2 fL (80-100); Monocytes Absolute Auto 800 /uL (0-900); Monocytes Percent Auto 9.2 % (3-14); Neutrophils Absolute Auto 6600 /uL (1500-7000); Neutrophils Percent Auto 75.6 % (50-75); Platelet Count 178 X10^3/uL (150-400); Red Blood Cell Count 4.53 X10^6/uL (4.5-5.9); White Blood Cell Count 8.7 X10^3/uL (4.5-11.0)
[2020-04-28] MEDS: predniSONE 20 MG TABLET 40 MG PO ×2 (10:47→10:52)
[2020-04-28 10:52] LABS: Alanine Aminotransferase 14 IU/L (<50); Albumin Globulin Ratio 1.3 (1.0-2.8); Alkaline Phosphatase 107 U/L (38-126); Aspartate Aminotransferase 22 IU/L (17-59); BUN Creatinine Ratio 22.6 (6-22); Bilirubin Total 0.9 mg/dL (0.2-1.3); Blood Urea Nitrogen 31 mg/dL (9-20); Calcium 9.1 mg/dL (8.4-10.2); Carbon Dioxide 29 mmol/L (22-32); Chloride 102 mmol/L (98-107); Estimated Glomerular Filt Rate 49.4 mL/min (>60); Globulin 3.2 g/dL (1.7-4.1); Glucose 145 mg/dL (80-110); HEMOLYSIS < 15 (0-50); Potassium 4.4 mmol/L (3.4-5.1); Sodium 136 mmol/L (137-145); Total Protein 7.2 g/dL (6.3-8.2); Uric Acid 8.1 mg/dL (3.5-8.5)
--- NOTE | 2020-04-28 10:54 | PC.NURSE ---
pt medicated as per mdo
[2020-04-28 11:21] VITALS: BP 114/68; PULSE 68; O2SAT 96
== END 2020-04-28 11:40 | disposition home or self-care (01) ==
PROVIDERS: Emergency Provider Emergency Medicine; Family Provider Family Medicine; PCP Family Medicine
DX: M10.9 Gout, unspecified (principal); N28.9 Disorder of kidney and ureter, unspecified; I50.9 Heart failure, unspecified; J44.9 Chronic obstructive pulmonary disease, unspecified
CPT/HCPCS: 80053; 84550; 85025; 99283

== ENCOUNTER → 2020-06-09 11:06 | Outpatient (CLI) | payer BC, SELFPAY ==
[2020-06-09 12:28] LABS: Alanine Aminotransferase 18 IU/L (<50); Albumin 3.8 g/dL (3.5-5.0); Albumin Globulin Ratio 1.3 (1.0-2.8); Alkaline Phosphatase 103 U/L (38-126); Aspartate Aminotransferase 26 IU/L (17-59); BUN Creatinine Ratio 20.5 (6-22); Bilirubin Total 0.6 mg/dL (0.2-1.3); Blood Urea Nitrogen 33 mg/dL (9-20); Calcium 9.5 mg/dL (8.4-10.2); Carbon Dioxide 36 mmol/L (22-32); Chloride 102 mmol/L (98-107); Glucose 123 mg/dL (80-110); HEMOLYSIS < 15 (0-50); Potassium 4.9 mmol/L (3.4-5.1); Sodium 140 mmol/L (137-145); Total Protein 6.8 g/dL (6.3-8.2); Uric Acid 6.9 mg/dL (3.5-8.5)
[2020-06-09 13:27] LABS: Vitamin B12 Reflex MMA if <400 937 pg/mL (239-931)
== END ==
PROVIDERS: Family Provider Family Medicine; PCP Family Medicine; Referring Provider Family Medicine; Visit Provider Family Medicine
DX: M10.072 Idiopathic gout, left ankle and foot (principal); K14.6 Glossodynia
CPT/HCPCS: 36415; 80053; 82607; 84550

== ENCOUNTER → 2020-12-02 10:21 | Outpatient (CLI) | payer BC, SELFPAY ==
[2020-12-02 11:11] LABS: Add Manual Diff / Slide Review NO; Basophils Absolute Auto 0 /uL (0-100); Basophils Percent Auto 0.7 % (0-2); Eosinophils Absolute Auto 500 /uL (0-450); Eosinophils Percent Auto 7.7 % (2-4); Hematocrit 43.5 % (41-53); Hemoglobin 14.3 g/dL (13.5-17.5); Lymphocytes Absolute Auto 1200 /uL (1100-4500); Lymphocytes Percent Auto 17.3 % (25-40); Mean Corpuscular Volume 94.1 fL (80-100); Monocytes Absolute Auto 600 /uL (0-900); Neutrophils Absolute Auto 4400 /uL (1500-7000); Neutrophils Percent Auto 65.3 % (50-75); Platelet Count 225 X10^3/uL (150-400); Red Blood Cell Count 4.62 X10^6/uL (4.5-5.9); Red Cell Distribution Width 13.1 % (11.6-14.8); White Blood Cell Count 6.7 X10^3/uL (4.5-11.0)
== END ==
PROVIDERS: Family Provider Family Medicine; PCP Family Medicine; Referring Provider Family Medicine; Visit Provider Family Medicine
DX: R04.0 Epistaxis (principal)
CPT/HCPCS: 36415; 85025

== ENCOUNTER → 2020-12-19 11:08 | Outpatient (CLI) | payer BC, SELFPAY ==
--- NOTE | 2020-12-19 | DI.RAD.S_ITS ---
PROCEDURE: FL BARIUM SWALLOW INDICATIONS: Dysphagia, pharyngoesophageal phase COMPARISON: None. FINDINGS: Function: There is normal esophageal peristalsis. No elicited gastroesophageal reflux. There is normal initiation of swallowing reflex. There is mild premature spillage of contrast material prior to initiation of swallowing reflex which pooled within the vallecula. No laryngotracheal penetration or aspiration. No stricture. Nose increase diverticulum. Of there is mild pooling of contrast material in the vallecula which is easily cleared with repeat swallowing. There is normal transit of a calibrated barium tablet through the esophagus into the stomach. Morphology: Air-contrast images are suboptimal due to poor air-contrast related to the inability of the patient to containing the air without irritation, however the images demonstrate demonstrate grossly normal mucosal morphology. Single contrast views show no esophageal strictures, extrinsic mass effects, or diverticula. Limited images of the stomach demonstrate normal appearance. IMPRESSION: Normal examination. Dictated by: Janell Rodriguez MD, PhD on 12/19/2020 at 13:31 Approved by: Janell Rodriguez MD, PhD on 12/19/2020 at 13:38
== END ==
PROVIDERS: Family Provider Family Medicine; PCP Family Medicine; Referring Provider Otolaryngology; Visit Provider Otolaryngology
DX: R13.14 Dysphagia, pharyngoesophageal phase (principal)
CPT/HCPCS: 74221

== ENCOUNTER → 2021-07-29 13:45 | Outpatient (CLI) | payer BC, SELFPAY ==
[2021-07-29 16:27] LABS: BUN Creatinine Ratio 18.8 (6-22); Blood Urea Nitrogen 31 mg/dL (9-20); Calcium 9.7 mg/dL (8.4-10.2); Carbon Dioxide 33 mmol/L (22-32); Chloride 99 mmol/L (98-107); Estimated Glomerular Filt Rate 39.8 mL/min (>60); Glucose 146 mg/dL (80-110); HEMOLYSIS < 15 (0-50); Potassium 4.7 mmol/L (3.4-5.1); Sodium 140 mmol/L (137-145)
== END ==
PROVIDERS: Family Provider Family Medicine; PCP Family Medicine; Referring Provider Physician Assistant Medical; Visit Provider Physician Assistant Medical
DX: I48.0 Paroxysmal atrial fibrillation (principal)
CPT/HCPCS: 36415; 80048

== ENCOUNTER 2023-02-24 14:52 | Emergency (ER) | payer BC, SELFPAY ==
[2023-02-24 15:13] VITALS: BP 109/74; PULSE 76; RESP 18; TEMP 36.9; O2SAT 97; BMI 25.8
--- NOTE | 2023-02-24 15:18 | DI.US.S_ITS ---
PROCEDURE: US SCROTUM INDICATIONS: RIGHT SCROTAL SWELLING TECHNIQUE: Real-time scanning was performed of the scrotum and testicles, with image documentation. Color and pulse Doppler interrogation was performed of both testicles. COMPARISON: None. FINDINGS: Right: Testicle is normal in size at 3.9 x 2.6 x 2.3 cm, and homogenous in echotexture. Epididymis demonstrates cysts the larger measuring 2.4 cm. Small hydrocele without varicocele. Overlying scrotal skin is normal in thickness. Left: Testicle is normal in size at 3.9 x 3.0 x 2.5 cm, and homogeneous in echotexture. Epididymis demonstrates cysts the largest measuring 1.1 cm. Moderate hydrocele without varicoceles. Overlying scrotal skin is normal in thickness. Doppler: Color and pulse Doppler demonstrate normal and symmetric arterial flow in both testicles. IMPRESSION: Bilateral epididymal cysts and hydroceles. Dictated by: Mary Beth Tavares M.D. on 02/24/2023 at 16:26 Approved by: Mary Beth Tavares M.D. on 02/24/2023 at 16:28
--- NOTE | 2023-02-24 16:09 | ED.MALEGU ---
HPI - Male Genitourinary <Humphrey Buchanan PA-C - Last Filed: 02/24/23 16:59> General Chief complaint: Urogenital-Male Stated complaint: Scrotum problem Time Seen by Provider: 02/24/23 15:22 History of Present Illness HPI Narrative: This is an 87-year-old male presents emergency department due to reported right-sided testicular mass. He states that about a month ago began to be about the size of a dime but has now grown to the size of a quarter. He denies any testicular pain, nausea, vomiting, diarrhea, abdominal pain, penile discharge, scrotal rashes, pelvic pain, or any other concerning signs or symptoms. No dysuria, urinary frequency, or any other signs or symptoms of UTI. Related Data Home Medications Medication Instructions Recorded Confirmed ALBUTEROL SULFATE (Ventolin / 1 - 2 puff INH BID ##0 02/20/06 11/08/22 Proventil) ASPIRIN (Aspirin Ec) 81 mg PO ##0 02/20/06 11/08/22 BECLOMETH INHALER 42MCG (VANCERIL) 4 puff INH BID ##0 02/20/06 11/08/22 DIGOXIN (Lanoxin) 0.25 mg PO ##0 02/20/06 11/08/22 FUROSEMIDE (Lasix) 20 mg PO Q DAY ##0 02/20/06 11/08/22 LISINOPRIL (Zestril / Prinivil) 20 mg PO ##0 02/20/06 11/08/22 Metoprolol Succinate (Toprol Xl) 150 mg PO Q DAY ##0 02/20/06 11/08/22 Pyridoxine (Vitamin B-6) 0 PO * DOSE/FREQUENCY ##0 02/20/06 11/08/22 Previous Rx's Medication Instructions Recorded prednisone 10 mg tablet 10 mg PO DAILY #21 tabs 04/28/20 Allergies Allergy/AdvReac Type Severity Reaction Status Date / Time amlodipine AdvReac Verified 02/24/23 15:20 cephalexin AdvReac Verified 02/24/23 15:21 lisinopril AdvReac Verified 02/24/23 15:21 losartan AdvReac Verified 02/24/23 15:20 statins Allergy Uncoded 02/24/23 15:17 Review of Systems <Humphrey Buchanan PA-C - Last Filed: 02/24/23 16:59> Review of Systems Narrative: GENERAL: Denies chills, fatigue, malaise, fever, sweats. HEENT: Denies sinus pain, ear pain, sore throat, difficulty swallowing, dizziness. RESPIRATORY: Denies dyspnea, cough, wheezing, hemoptysis, sputum. CARDIOVASCULAR: Denies chest pain, palpitations, orthopnea, edema, GASTROINTESTINAL: Denies nausea, vomiting, abdominal pain, diarrhea, constipation, melena. : Reports right-sided testicular mass. Denies dysuria, urinary frequency, penile discharge MUSCULOSKELETAL: denies weakness, joint pain, or bony pain SKIN: Denies rash, skin lesions, or other NEUROLOGIC: Denies weakness, headache, numbness, change in speech, confusion, seizures, incoordination. PSYCHIATRIC: No concerning psychosocial issues. 12 point review of systems is negative except for those stated above Patient History <Humphrey Buchanan PA-C - Last Filed: 02/24/23 16:59> Medical History (Updated 02/24/23 @ 16:57 by Humphrey Buchanan PA-C) Congestive heart failure COPD (chronic obstructive pulmonary disease) Renal insufficiency Surgical History History of permanent cardiac pacemaker placement Social History Smoking Status: Former smoker Smoking Status: Former smoker alcohol intake frequency: holidays/special occasions only Substance Use Type: does not use Exam <Humphrey Buchanan PA-C - Last Filed: 02/24/23 16:59> Narrative Exam Narrative: GENERAL: Well-developed patient, in mild distress. HEAD: Atraumatic. Normocephalic. EYES: Pupils equal round and reactive. Extraocular motions intact. No scleral icterus. No injection or drainage. ENT: Nose without bleeding, purulent drainage. Throat without erythema, tonsillar hypertrophy or exudate. Airway patent. NECK: Trachea midline. Non tender GASTROINTESTINAL: Abdomen soft, non-tender, nondistended. EXTREMITIES: No edema or joint tenderness. BACK: Nontender without deformity or crepitance. No flank tenderness. NEURO: AOx3. SKIN: No rash or erythema of visible areas : No obvious masses felt on manipulation and palpation of testicles and scrotum. No external rashes. No abscesses noted. No penile discharge. No pain with manipulation. Initial Vital Signs Initial Vital Signs: Vital Signs Temperature 98.4 F 02/24/23 15:13 Pulse Rate 76 02/24/23 15:13 Respiratory Rate 18 02/24/23 15:13 Blood Pressure 109/74 02/24/23 15:13 Pulse Oximetry 97 02/24/23 15:13 Oxygen Delivery Method Room Air 02/24/23 15:13 <DO Babak Meraz Last Filed: 03/01/23 04:20> Initial Vital Signs Initial Vital Signs: Vital Signs Temperature 98.4 F 02/24/23 15:13 Pulse Rate 76 02/24/23 15:13 Respiratory Rate 18 02/24/23 15:13 Blood Pressure 109/74 02/24/23 15:13 Pulse Oximetry 97 02/24/23 15:13 Oxygen Delivery Method Room Air 02/24/23 15:13 Course <Humphrey Buchanan PA-C - Last Filed: 02/24/23 16:59> Orders Ordered: ED Orders 02/24/23 15:18 US scrotum Stat Vital Signs Vital signs: Vital Signs - 8 hr 02/24/23 15:13 Temperature 98.4 F Pulse Rate 76 Respiratory Rate 18 Blood Pressure 109/74 Pulse Oximetry 97 Oxygen Delivery Method Room Air <DO Babak Meraz Last Filed: 03/01/23 04:20> Orders Ordered: ED Orders 02/24/23 15:18 US scrotum Stat Vital Signs Vital signs: Vital Signs - 8 hr 02/24/23 15:13 Temperature 98.4 F Pulse Rate 76 Respiratory Rate 18 Blood Pressure 109/74 Pulse Oximetry 97 Oxygen Delivery Method Room Air MDM - Male Genitourinary <AZAR Desir Last Filed: 02/24/23 16:59> Imaging Data Testicular US : Radiologist's Impression: [address] [address] Ultrasound Report Signed Patient: Morteza Marquez MR#: [id number] : 1935 Acct:[id number] Age/Sex: 87 / M Date of Service: 02/24/23 Loc: ED Accession Number: [id number] ?? Procedure: US scrotum Ordering Provider: Jeromy Wagner D.O. PROCEDURE:? US SCROTUM ? INDICATIONS:? RIGHT SCROTAL SWELLING ? TECHNIQUE:? Real-time scanning was performed of the scrotum and testicles, with image documentation.? Color and pulse Doppler interrogation was performed of both testicles.? ? COMPARISON:? None. ? FINDINGS:? ? Right:? Testicle is normal in size at 3.9 x 2.6 x 2.3 cm, and homogenous in echotexture.? Epididymis demonstrates cysts the larger measuring 2.4 cm. Small hydrocele without varicocele.? Overlying scrotal skin is normal in thickness.? ? Left:? Testicle is normal in size at 3.9 x 3.0 x 2.5 cm, and homogeneous in echotexture.? Epididymis demonstrates cysts the largest measuring 1.1 cm.? Moderate hydrocele without varicoceles.? Overlying scrotal skin is normal in thickness.? ? Doppler:? Color and pulse Doppler demonstrate normal and symmetric arterial flow in both testicles.? ? IMPRESSION:? ? Bilateral epididymal cysts and hydroceles. ? Dictated by: Mary Beth Tavares M.D. on 02/24/2023 at 16:26 ? ? Approved by: Mary Beth Tavares M.D. on 02/24/2023 at 16:28 ? MDM Narrative Medical decision making narrative: MDM * differential diagnosis includes but not limited to testicular torsion, hydrocele, varicocele, epididymitis, epididymal cysts * Prior records reviewed: Patient has not been here for similar symptoms in the past. * My lab interpretation: None obtained * My imgaing interpretation: Testicular ultrasound shows bilateral epididymal cysts and hydrocele * Clinical Decision Rules/Scores evaluated: None * Independent discussions with: None ED Course: This is a 79-year-old male presents emergency department due to reported right testicular mass that he has felt on palpation. I was unable to feel any particular masses but scrotal ultrasound was ordered which showed bilateral epididymal cyst as well as hydrocele. Patient is having no testicular pain and no signs or symptoms of a infection. Denies penile discharge or any urinary symptoms. Patient will be referred to outpatient Urology for follow up. Shared Decision Making: Discussed plan the patient is comfortable with the plan. Social Considerations: None Disposition: Discharged to home Discharge Plan Departure Patient Disposition: Home Clinical Impression: Epididymal cyst, Hydrocele Activity Restrictions/Additional Instructions: Thank you for coming to the [facility] Emergency Department today. As we discussed your ultrasound showed bilateral cysts affecting your testicles as well as some extra fluid in your scrotum. These are not life-threatening but I would recommend you follow up with the urologist who is information is attached below. Please call them tomorrow to schedule a follow up appointment. I hope you feel better soon. Prescriptions: No Action LISINOPRIL (Zestril / Prinivil) 20 mg PO Qty: 0 Metoprolol Succinate (Toprol Xl) 150 mg PO Q DAY Qty: 0 DIGOXIN (Lanoxin) 0.25 mg PO Qty: 0 FUROSEMIDE (Lasix) 20 mg PO Q DAY Qty: 0 ASPIRIN (Aspirin Ec) 81 mg PO Qty: 0 Pyridoxine (Vitamin B-6) 0 PO * UK DOSE/FREQUENCY Qty: 0 ALBUTEROL SULFATE (Ventolin / Proventil) 1 - 2 puff INH BID Qty: 0 BECLOMETH INHALER 42MCG (VANCERIL) 4 puff INH BID Qty: 0 prednisone 10 mg tablet 10 mg PO DAILY Qty: 21 0RF Rx Instructions: 40 mg 04/29,26 30 mg 05/01,28 20 mg 05/03,30 10mg 05/05,05/06 and 5mg 05/07,3 then stop Referrals: Valeria Lee DO [Primary Care Provider] - Shekhar Sanders MD [Physician] - (f/u epididymal cyst and hydrocele ) Stand Alone Forms: Patient Portal/API <Jeromy Wagner DO - Last Filed: 03/01/23 04:20> Cosign ED Attending Bobbiature Attestation: I was immediately available in the department for consultation. Documentation has been reviewed. I agree with assessment and plan.
== END 2023-02-24 17:23 | disposition home or self-care (01) ==
PROVIDERS: Emergency Provider Physician Assistant Medical; Family Provider Family Medicine; PCP Family Medicine
DX: N50.3 Cyst of epididymis (principal); N43.3 Hydrocele, unspecified
CPT/HCPCS: 76870; 99281; 99283

== ENCOUNTER → 2023-07-06 13:24 | Outpatient (CLI) | payer BC, SELFPAY ==
[2023-07-06 14:33] LABS: Alanine Aminotransferase 18 IU/L (<50); Albumin 4.4 g/dL (3.5-5.0); Albumin Globulin Ratio 1.3 (1.0-2.8); Alkaline Phosphatase 120 U/L (38-126); Aspartate Aminotransferase 30 IU/L (17-59); BUN Creatinine Ratio 24.2 (6-22); Bilirubin Total 0.7 mg/dL (0.2-1.3); Blood Urea Nitrogen 29 mg/dL (9-20); Calcium 9.6 mg/dL (8.4-10.2); Carbon Dioxide 26 mmol/L (22-32); Chloride 98 mmol/L (98-107); Estimated Glomerular Filt Rate 58 mL/min (>60); Globulin 3.5 g/dL (1.7-4.1); Glucose 102 mg/dL (80-110); HEMOLYSIS 74 (0-50); Potassium 4.4 mmol/L (3.4-5.1); Sodium 135 mmol/L (137-145); Total Protein 7.9 g/dL (6.3-8.2)
== END ==
PROVIDERS: Family Provider Family Medicine; PCP Family Medicine; Referring Provider Physician Assistant Medical; Visit Provider Physician Assistant Medical
DX: I42.8 Other cardiomyopathies (principal)
CPT/HCPCS: 36415; 80053

== ENCOUNTER → 2024-04-04 09:11 | Outpatient (CLI) | payer BC, SELFPAY ==
[2024-04-04 10:20] LABS: BUN Creatinine Ratio 21.8 (6-22); Blood Urea Nitrogen 32 mg/dL (9-20); Calcium 8.8 mg/dL (8.4-10.2); Carbon Dioxide 29 mmol/L (22-32); Chloride 103 mmol/L (98-107); Estimated Glomerular Filt Rate 45 mL/min (>60); Glucose 176 mg/dL (80-110); HEMOLYSIS < 15 (0-50); Potassium 3.9 mmol/L (3.4-5.1); Sodium 139 mmol/L (137-145)
[2024-04-04 11:52] LABS: Hematocrit 41.1 % (41-53); Hemoglobin 13.8 g/dL (13.5-17.5); Mean Corpuscular HGB Conc 33.5 % (30-36); Mean Corpuscular Hemoglobin 32.2 PG (26-34); Mean Corpuscular Volume 96.1 fL (80-100); Platelet Count 207 X10^3/uL (150-400); Red Blood Cell Count 4.27 X10^6/uL (4.5-5.9); Red Cell Distribution Width 14.1 % (11.6-14.8); White Blood Cell Count 8.7 X10^3/uL (4.5-11.0)
== END ==
PROVIDERS: Family Provider Family Medicine; PCP Family Medicine; Referring Provider Internal Medicine Cardiovascular Disease; Visit Provider Internal Medicine Cardiovascular Disease
DX: I42.8 Other cardiomyopathies (principal)
CPT/HCPCS: 36415; 80048; 85027

== ENCOUNTER → 2024-05-28 07:19 | Outpatient (CLI) | payer BC, SELFPAY ==
--- NOTE | 2024-05-28 07:20 | DI.US.S_ITS ---
PROCEDURE: US ABDOMEN LIMITED INDICATIONS: mass to right groin TECHNIQUE: Real-time focused scanning was performed of the inguinal region, with image documentation. COMPARISON: None. FINDINGS: Multiple grayscale images of the right inguinal region demonstrates presence of a fat and bowel containing inguinal hernia which demonstrates reducibility. Without Valsalva maneuver, there is only herniated right inguinal fat. Wall defect measures approximately 1.5 cm x 1.0 cm in size. IMPRESSION: Reducible fat and bowel containing right inguinal hernia. Dictated by: Eris James M.D. on 05/28/2024 at 9:20 Approved by: Eris James M.D. on 05/28/2024 at 9:22
== END ==
LOC: US 07:19
PROVIDERS: Family Provider Family Medicine; PCP Family Medicine; Referring Provider Physician Assistant; Visit Provider Physician Assistant
DX: K40.90 Unilateral inguinal hernia, without obstruction or gangrene, not specified as recurrent (principal); R19.09 Other intra-abdominal and pelvic swelling, mass and lump
CPT/HCPCS: 76705

== ENCOUNTER → 2024-06-11 12:25 | Outpatient (CLI) | payer BC, SELFPAY ==
--- NOTE | 2024-06-11 12:26 | DI.ECHO.S_ITS ---
[place] +---------+ Hospital : : [address] : : [place] : : [address] : : Phone: [phone] Echocardiogram Report + + :Name: NIK SY Study Date: 06/11/2024 Height: 66 in : :[facility] ReadingLocation: Weight: 170 lb : : Gender: Male BSA: 1.9 m2 : :: 1935 Age: 88 yrs BP: 112/72 mmHg: :Reason For Study: NONISCHEMIC CARDIOMYOPATHY : :Ordering Physician: RORY, : :GEOFFREY Marc Performed By: Taran Lopez : :Referring: UNSPECIFIED : + + Interpretation Summary Mild concentric left ventricular hypertrophy with ejection fraction 55-60%. Apical wall motion abnormality may reflect pacemaker activation. Mild mitral regurgitation. The ascending aorta is mildly enlarged. Comparison is made with the echocardiogram of 11/20/2019, LV function has improved. Procedure: A two-dimensional transthoracic echocardiogram with color flow and Doppler was performed. The study quality was technically good. Comparison is made with the echocardiogram of 11/20/2019. The patient has a paced rhythm. Left Ventricle: The left ventricle is normal in size. There is mild concentric left ventricular hypertrophy. There is no ventricular septal defect visualized. The ejection fraction is estimated to be 55-60%. Apical wall motion abnormality may reflect pacemaker activation. Right Ventricle: The right ventricle is normal in size and function. Atria: The left atrial size is normal. The right atrium is mildly dilated. The interatrial septum grossly appears intact with no obvious evidence for an atrial septal defect. Mitral Valve: The mitral valve is normal in structure and function. There is mild mitral regurgitation. Aortic Valve: The aortic valve is trileaflet. The aortic valve opens well. No aortic regurgitation is present. Tricuspid Valve: The tricuspid valve is normal in structure and function. There is a trace or physiologic amount of tricuspid regurgitation. The right ventricular systolic pressure is estimated to be at least 20 mmHg based on an estimated right atrial pressure of 3 mm Hg. Pulmonic Valve: The pulmonic valve is normal in structure and function. There is trace pulmonic regurgitation. Great Vessels: The aortic root is mildly dilated. The ascending aorta is mildly enlarged. The pulmonary artery is normal size. The IVC is of normal diameter and collapses greater than 50% with a sniff. This suggests a low right atrial pressure of 3 mm Hg. Pericardium/ Pleura There is no pericardial effusion. There is no pleural effusion. MMode/2D Measurements & Calculations LVIDd: 4.6 cm LVOT diam: 2.2 cm LVIDs: 3.5 cm Ao root diam: 3.9 cm FS: 25.1 % asc Aorta Diam: 4.2 cm EPSS: 0.78 cm Ao Arch Diam (Prox Trans): 2.7 cm IVSd: 1.2 cm LVPWd: 1.2 cm LV chavira. diameter/BSA (cm/m^2): 2.5 LV sys. diameter/BSA (cm/m^2): 1.8 LA A2 area: 21.3 cm2 RA long axis: 5.9 cm LA A4 area: 17.0 cm2 RA area: 20.5 cm2 LA length (vol): 5.3 cm RA vol: 60.7 ml LA vol: 58.6 ml RA : 32.5 ml/m2 LA vol index: 31.4 ml/m2 IVC diam: 1.8 cm RVD1 (basal): 3.5 cm RVD2 (mid): 2.8 cm TAPSE: 2.4 cm Doppler Measurements & Calculations Ao V2 max: 105.2 cm/sec LVOT Max Georgi: 90.4 cm/sec Ao V2 mean: 77.2 cm/sec LV V1 max P.3 mmHg Ao max P.4 mmHg LV V1 VTI: 16.4 cm Ao mean P.6 mmHg FAMILIA(I,D): 3.1 cm2 Ao V2 VTI: 21.2 cm FAMILIA(V,D): 3.4 cm2 sev ratio: 0.77 FAMILIA indexed to BSA (cm^2/m^2): 1.6 MV E max georgi: 47.4 cm/sec TR max georgi: 206.9 cm/sec MV A max georgi: 52.5 cm/sec TR max P.1 mmHg MV E/A: 0.90 PA V2 max: 63.1 cm/sec Med Peak E' Georgi: 4.7 cm/sec PA V2 mean: 43.9 cm/sec E/E' med: 10.0 PA mean P.89 mmHg Lat Peak E' Georgi: 5.8 cm/sec PA pr(Accel): 39.6 mmHg E/E' lat: 8.1 E/e' average: 9.1 MV dec time: 0.28 sec SV(LVOT): 64.8 ml Electronically signed by: Av Cruz on Reading Physician:06/11/2024 04:33 PM
== END ==
PROVIDERS: Family Provider Family Medicine; PCP Family Medicine; Referring Provider Nurse Practitioner Family; Visit Provider Nurse Practitioner Family
DX: I34.0 Nonrheumatic mitral (valve) insufficiency (principal); I42.8 Other cardiomyopathies; I77.810 Thoracic aortic ectasia; I77.89 Other specified disorders of arteries and arterioles
CPT/HCPCS: 93306

== ENCOUNTER 2024-06-19 08:51 | Day surgery (SDC) | payer BC, SELFPAY ==
[2024-06-15 15:34] VITALS: BMI 27.3
[2024-06-19] VITALS (7 sets, daily range): BP systolic 89–130; BP diastolic 54–86; PULSE 71–80; RESP 12–20; TEMP 36.2–37; O2SAT 93–97; BMI 27.6
--- NOTE | 2024-06-19 09:22 | SUR.OPER ---
Supine on padded OR bed, head on pillow, arms secured on padded arm boards at <90 degrees abduction, legs uncrossed, safety belt at thigh, tape over blanket over lower legs.
[2024-06-19] MEDS: LACTATED RINGERS 1,000 ML 42 ML IV (09:41)
--- NOTE | 2024-06-19 09:44 | PM.PREOP ---
Pre-operative Note COVID-19 COVID-19 status: Not tested Interval Note History & Physical reviewed/Exam performed by Physician: Yes Changes to H&P: No ASA Class (for procedural sedation): III
[2024-06-19] MEDS: CLINDAMYCIN 900 MG/50 ML PIGGYBACK 50 MG IV (10:25)
[2024-06-19] MEDS: BUPIVACAINE 0.5% W/ EPI (PF) 30 ML VIAL INJ (10:50)
--- NOTE | 2024-06-19 11:24 | PM.OP.1 ---
Operative Date/Time/Diagnoses Date of procedure: 06/19/24 Time of procedure: 11:24 Pre-op diagnosis: Right inguinal hernia Post-op diagnosis: same Procedure & Clinicians Procedure: Open right inguinal hernia repair with mesh Same procedure as scheduled: Yes Surgeon: Ramsey Quinones Ramp Service Man: Abel Hardwick Anesthesia Type: General Operative Notes Procedure in detail: Preoperative antibiotic was administered. The patient was brought to the operating room and placed on the table in supine position general anesthesia was induced. The right groin was prepped and draped in the normal fashion and a time-out was performed. Roughly 10 mL of local anesthetic were injected into the skin and subcutaneous adipose tissue over the right groin. A 6 cm incision was made over the right inguinal canal. Dissection was carried down through the subcutaneous adipose tissue. We exposed the external oblique aponeurosis in the direction of the fibers. Additional local was injected deep to the aponeurosis. A 15 blade scalpel was used to chapo the external oblique aponeurosis. Metzenbaum scissors were used to carefully open the aponeurosis in the direction of the fibers taking care not to injure the underlying ilioinguinal nerve which was well seen and protected. We completely exposed the inguinal canal. The cord was dissected free from the inguinal ligament and floor of the inguinal canal and the external oblique aponeurosis was dissected off of the internal oblique taking care not to injure the hypogastric nerve. We encircled the cord with a Humberto drain for retraction. There was an indirect hernia sac with an attached cord lipoma. We dissected the cord lipoma and hernia sac off the cord structures. We then placed a polypropylene mesh against the floor of the inguinal canal. The mesh was secured with multiple interrupted 3-0 Prolene sutures to the pubic tubercle and shelving edge of the inguinal ligament as well as to the conjoint tendon medially. We overlapped the tails to recreate an internal ring and secured the medial tail to the inguinal ligament with additional sutures. We injected some more local into the fatty tissue in the inguinal canal and cord. Finally, we removed the [place] drain and closed the external oblique fascia with a running 3-0 Vicryl suture. Skin was closed with interrupted 3-0 Vicryl dermal sutures and a running 4 Monocryl subcuticular stitch. EBL 5 mL The patient was awakened and brought to recovery room. Post-operative Condition: stable Disposition: PACU
--- NOTE | 2024-06-19 12:35 | SUR.PHASEII ---
1200 Called [employer]ol[employer] to reprogram pacemaker. She will be here in 45 mins. Pt awake, alert and stable. Denies pain.
--- NOTE | 2024-06-19 12:42 | SUR.PHASEII ---
Cont's to await pacemaker rep. Pt asked multiple times if he feels safe to return home. Pt lives alone. Dr Quinones aware and remains ok for pt to be discharged home via taxi.
--- NOTE | 2024-06-19 13:45 | SUR.PHASEII ---
1253 Pacemaker rep here to reprogram pacemaker prior to discharge
== END 2024-06-19 13:35 | disposition home or self-care (01) ==
PROVIDERS: Family Provider Family Medicine; PCP Family Medicine; Referring Provider Surgery; Visit Provider Surgery
PROC: (CPT 49505; principal; 2024-06-19 10:45)
DX: K40.90 Unilateral inguinal hernia, without obstruction or gangrene, not specified as recurrent (principal); J44.9 Chronic obstructive pulmonary disease, unspecified; I50.9 Heart failure, unspecified; N28.9 Disorder of kidney and ureter, unspecified; Z95.810 Presence of automatic (implantable) cardiac defibrillator; Z87.891 Personal history of nicotine dependence; Z87.442 Personal history of urinary calculi
CPT/HCPCS: 49505; J0330; J1100; J2405; J2704; J3010